=== PATIENT | male | born 1975 | race Two or more races ===

== ENCOUNTER 2023-05-02 13:46 | Emergency (ER) | payer MEDICAID, OTHER ==
[~2023-05-02] VITALS: Ht 185.4 cm; Wt 92.2 kg
[2023-05-02 14:47] VITALS: BP 150/71; PULSE 84; RESP 16; TEMP 98.4; O2SAT 97
[2023-05-02] MEDS ORDERED: IBUP-1456 PO (15:09)
[2023-05-02] MEDS ORDERED: AMOX875T3 PO (15:09)
[2023-05-02] MEDS ORDERED: PROM1SOL4 PO (15:09)
== END 2023-05-02 15:25 | disposition home or self-care (01) ==
LOC: ER 13:46
DX: H66.92 Otitis media, unspecified, left ear (principal); J03.90 Acute tonsillitis, unspecified; J20.9 Acute bronchitis, unspecified

== ENCOUNTER 2024-03-19 19:02 | Emergency (ER) | payer MEDICAID ==
[~2024-03-19] VITALS: Ht 185.4 cm; Wt 88.6 kg
[~2024-03-19 19:02] MED LIST: AMOX875T3 PO; IBUP-1456 PO; METH4PAK PO; PROM1SOL4 PO
--- NOTE | 2024-03-19 19:48 | DVH ---
EXAM: XR Chest, 1 View CLINICAL INDICATION: Cough TECHNIQUE: Frontal view of the chest. COMPARISON: None FINDINGS: LUNGS AND PLEURAL SPACES: Unremarkable. No consolidation. No pneumothorax. HEART: Unremarkable. No cardiomegaly. MEDIASTINUM: Unremarkable. Normal mediastinal contour. BONES/JOINTS: Unremarkable. No acute fracture. OTHER FINDINGS: . None. . IMPRESSION: No acute cardiopulmonary process.
[2024-03-19] MEDS ORDERED: AZIT500T PO (19:50)
--- NOTE | 2024-03-19 19:53 | ED.PDOC ---
History of Present Illness HPI Comments 48 y.o male with medical history of HTN, presents to the ED for a chief complaint of a productive cough and congestion that presented 2 weeks ago. Patient reports cough is dry and is now associated with a week history of substernal chest discomfort due to the productivity of the cough. He denies any SOB, nausea, vomiting, fever or chills. Time Seen by MD: 19:46 Primary Care Provider: NONE Reviewed Notes: Nurses Notes, Medications, Allergies Allergies: Coded Allergies: NO KNOWN ALLERGIES (Unverified , 05/02/23) Home Meds Active Scripts Azithromycin (Zithromax) 500 Mg Tab, 1 TAB PO DAILY, #5 TAB Prov:BEVERLY ARAMBULA MD 03/19/24 Methylprednisolone (Medrol Dosepak) 4 Mg Regan, 4 MG PO UD for 6 Days, #21 TAB UAD Prov:BRENNON PLAZA 11/06/23 Promethazine-Dm (Promethazine Dm 6.25-15 mg/5Ml) 1 Macie Macie, 5 ML PO TID, #150 ML Prov:SKYLA BRAY 05/02/23 Ibuprofen (Ibuprofen) 800 Mg Tab, 1 TAB PO TID, #24 TAB Prov:SKYLA BRAY 05/02/23 Amoxicillin Trihydrate (Amoxicillin) 875 Mg Tab, 1 TAB PO BID, #20 TAB Prov:SKYLA BRAY 05/02/23 Information Source: Patient Severity: Moderate Timing: Weeks (2) Duration: Since onset Past Medical History PAST MEDICAL HISTORY: HTN Surgical History (Other): Back Family History Family History: Unknown Social History Smoker: Non-Smoker Alcohol: Denies ETOH Use Drugs: Denies Drug Use Lives In: Home Constitutional: denies: chills, diaphoresis, fatigue, fever, malaise, sweats, weakness, others EENTM: denies: blurred vision, double vision, ear bleeding, ear discharge, ear drainage, ear pain, ear ringing, eye pain, eye redness, hearing loss, mouth pain, mouth swelling, nasal discharge, nose bleeding, nose congestion, nose pain, photophobia, tearing, throat pain, throat swelling, voice changes, others Respiratory: reports: cough; denies: hemoptysis, orthopnea, SOB at rest, shortness of breath, SOB with excertion, stridor, wheezing, others Cardiovascular: reports: chest pain; denies: dizzy spells, diaphoresis, Dyspnea on exertion, edema, irregular heart beat, left arm pain, lightheadedness, palpitations, PND, syncope, others Gastrointestinal: denies: abdomen distended, abdominal pain, blood streaked bowels, constipated, diarrhea, dysphagia, difficulty swallowing, hematemesis, melena, nausea, poor appetite, poor fluid intake, rectal bleeding, rectal pain, vomiting, others Genitourinary: denies: burning, dysuria, flank pain, frequency, hematuria, incontinence, penile discharge, penile sore, pain, testicle pain, testicle swelling, urgency, others Neurological: denies: dizziness, fainting, headache, left sided numbness, left sided weakness, numbness, paresthesia, pre-existing deficit, right sided numbness, right sided weakness, seizure, speech problems, tingling, tremors, weakness, others Musculoskeletal: denies: back pain, gout, joint pain, joint swelling, muscle pain, muscle stiffness, neck pain, others Integumetry: denies: bruises, change in color, change in hair/nails, dryness, laceration, lesions, lumps, rash, wounds, others Allergic/Immunocompromised: denies: Difficulty Healing, Frequent Infections, Hives, Itching, others Hematologic/Lymphatic: denies: anemia, blood clots, easy bleeding, easy bruising, swollen glands, others Endocrine: denies: excessive hunger, excessive sweating, excessive thirst, excessive urination, flushing, intolerance to cold, intolerance to heat, unexpla ined weight gain, unexplained weight loss, others Psychiatric: denies: anxiety, bipolar disorder, depression, hopeless, panic disorder, schizophrenia, sleepless, suicidal, others All Other Systems: Reviewed and Negative Physical Exam General Appearance: No Apparent Distress HEENT: Normal ENT Inspection, Pharynx Normal, TMs Normal Neck: Full Range of Motion, Non-Tender, Normal, Normal Inspection Respiratory: Chest Non-Tender, Lungs Clear, No Accessory Muscle Use, No Respiratory Distress, Normal Breath Sounds Cardiovascular: No Edema, No JVD, No Murmur, No Gallop, Normal Peripheral Pulses, Regular Rate/Rhythm Breast Exam: Deferred Gastrointestinal: No Organomegaly, Non Tender, No Pulsatile Mass, Normal Bowel Sounds, Soft Genitalia: Deferred Pelvic: Deferred Rectal: Deferred Extremities: No calf tenderness, Normal capillary refill, Normal inspection, Normal range of motion, Non-tender, No pedal edema Musculoskeletal : Apperance: Normal 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 Was a procedure done?: No EKG EKG : Pulse Rate (adult): 83 Cardiac Rhythm: NSR Differential Dx Considerations may include: Bronchitis, PNA, URI, Angina, GERD, Chest wall pain X-Ray, Labs, Meds, VS Vital Signs Date Time Temp Pulse Resp B/P (MAP) Pulse Ox O2 Delivery O2 Flow Rate FiO2 03/19/24 20:21 83 03/19/24 19:50 99.3 83 19 142/64 (90) 96 03/19/24 19:50 19 96 Room Air* 0 21 EXAM: XR Chest, 1 View IMPRESSION: No acute cardiopulmonary process. The patient was being discharged on Zithromax The patient will return to the emergency department's condition worsens The diagnosis is acute bronchitis The patient will follow up with the primary care doctor Images Reviewed?: Images reviewed and evaluated by me Time of 1ST Reevaluation: 19:51 Reevaluation 1ST: Unchanged Patient Education/Counseling: Diagnosis, Treatment, Prognosis, Need For Follow Up Family Education/Counseling: No Family Present Departure 1 Departure Time of Disposition: 20:26 Impression: Primary Impression: Acute bronchitis Qualified Codes: J20.9 - Acute bronchitis, unspecified Disposition: HOME / SELF CARE / HOMELESS Condition: Fair e-Prescriptions Azithromycin (Zithromax) 500 Mg Tab 1 TAB PO DAILY, #5 TAB Prov: BEVERLY ARAMBULA MD 03/19/24 Discharged With: Self Critical Care Note Critical Care Time?: No Stability Stability form required: No Heart Score Heart Score: Heart Score Response (Comments) Value History N/A 0 EKG Normal 0 Age 45-64 1 Risk Factors 1 or 2 risk factors 1 Troponin N/A 0 Total 2 I personally scribed for BEVERLY ARAMBULA MD ([email or web address]) on 03/19/24 at 19:53. Electronically submitted by Noelle López ([facility]). I personally scribed for BEVERLY ARAMBULA MD ([email or web address]) on 03/19/24 at 19:54. Electronically submitted by Noelle López ([facility]). I personally scribed for BEVERLY ARAMBULA MD ([email or web address]) on 03/19/24 at 20:21. Electronically submitted by Noelle López ([facility]). BEVERLY ARAMBULA MD Mar 19, 2024 19:53
[2024-03-19 21:48] VITALS: BP 143/86; TEMP 99.5
[2024-03-19 21:49] VITALS: PULSE 74; RESP 20; O2SAT 97
--- NOTE | 2024-03-25 07:11 | ECG ---
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
== END 2024-03-19 21:51 | disposition home or self-care (01) ==
LOC: ER 19:02
DX: J20.9 Acute bronchitis, unspecified (principal); I10 Essential (primary) hypertension; Z79.1 Long term (current) use of non-steroidal anti-inflammatories (NSAID)
CPT/HCPCS: 71045

== ENCOUNTER 2025-01-23 11:43 | Emergency (ER) | payer MEDICAID ==
[~2025-01-23] VITALS: Ht 188 cm; Wt 90.8 kg
[~2025-01-23 11:43] MED LIST changes: +AZIT500T PO
--- NOTE | 2025-01-23 13:38 | ED.PDOC ---
History of Present Illness HPI Comments 49 y/o M, with PMHx of HTN presents to the ED for CC of headache. Patient states, he has been experiencing symptoms of a frontal "pressure" like headache onset, yesterday (01/22/25). Patient further reports, symptoms of shortness of breath along with chest discomfort. Patient denies palpitations bilateral leg swelling, fever, chills or palpitations. Chief Complaint: Headache Time Seen by MD: 13:30 Primary Care Provider: NONE Reviewed Notes: Nurses Notes, Medications, Allergies Allergies: Coded Allergies: NO KNOWN ALLERGIES (Unverified , 05/02/23) Home Meds Active Scripts Azithromycin (Zithromax) 500 Mg Tab, 1 TAB PO DAILY, #5 TAB Prov:BEVERLY ARAMBULA MD 03/19/24 Methylprednisolone (Medrol Dosepak) 4 Mg Regan, 4 MG PO UD for 6 Days, #21 TAB UAD Prov:BRENNON PLAZA 11/06/23 Promethazine-Dm (Promethazine Dm 6.25-15 mg/5Ml) 1 Macie Macie, 5 ML PO TID, #150 ML Prov:SKYLA BRAY 05/02/23 Ibuprofen (Ibuprofen) 800 Mg Tab, 1 TAB PO TID, #24 TAB Prov:SKYLA BRAY 05/02/23 Amoxicillin Trihydrate (Amoxicillin) 875 Mg Tab, 1 TAB PO BID, #20 TAB Prov:SKYLA BRAY 05/02/23 Information Source: Patient Mode of Arrival: Ambulatory Severity: Moderate Timing: Days Duration: Since onset Prehospital treatment: None Past Medical History PAST MEDICAL HISTORY: HTN Family History Family History: Unknown Social History Smoker: Non-Smoker Alcohol: Denies ETOH Use Drugs: Denies Drug Use Lives In: Home Constitutional: denies: chills, diaphoresis, fatigue, fever, malaise, sweats, weakness, others EENTM: denies: blurred vision, double vision, ear bleeding, ear discharge, ear drainage, ear pain, ear ringing, eye pain, eye redness, hearing loss, mouth pain , mouth swelling, nasal discharge, nose bleeding, nose congestion, nose pain, photophobia, tearing, throat pain, throat swelling, voice changes, others Respiratory: reports: shortness of breath; denies: cough, hemoptysis, orthopnea, SOB at rest, SOB with excertion, stridor, wheezing, others Cardiovascular: denies: chest pain, dizzy spells, diaphoresis, Dyspnea on exertion, edema, irregular heart beat, left arm pain, lightheadedness, palpitations, PND, syncope, others Gastrointestinal: denies: abdomen distended, abdominal pain, blood streaked bowels, constipated, diarrhea, dysphagia, difficulty swallowing, hematemesis, melena, nausea, poor appetite, poor fluid intake, rectal bleeding, rectal pain, vomiting, others Genitourinary: denies: burning, dysuria, flank pain, frequency, hematuria, incontinence, penile discharge, penile sore, pain, testicle pain, testicle swelling, urgency, others Neurological: reports: headache; denies: dizziness, fainting, left sided numbness, left sided weakness, numbness, paresthesia, pre-existing deficit, right sided numbness, right sided weakness, seizure, speech problems, tingling, tremors, weakness, others Musculoskeletal: denies: back pain, gout, joint pain, joint swelling, muscle pain, muscle stiffness, neck pain, others Integumetry: denies: bruises, change in color, change in hair/nails, dryness, laceration, lesions, lumps, rash, wounds, others Allergic/Immunocompromised: denies: Difficulty Healing, Frequent Infections, Hives, Itching, others Hematologic/Lymphatic: denies: anemia, blood clots, easy bleeding, easy bruising, swollen glands, others Endocrine: denies: excessive hunger, excessive sweating, excessive thirst, excessive urination, flushing, intolerance to cold, intolerance to heat, unexplained weight gain, unexplained weight loss, others Psychiatric: denies: anxiety, bipolar disorder, depression, hopeless, panic disorder, schizophrenia, sleepless, suicidal, others All Other Systems: Reviewed and Negative Physical Exam General Appearance: No Apparent Distress, Normal HEENT: Normal ENT Inspection, Pharynx Normal Neck: Full Range of Motion, Non-Tender, Normal, Normal Inspection Respiratory: Chest Non-Tender, Lungs Clear, No Accessory Muscle Use, No Respiratory Distress, Normal Breath Sounds Cardiovascular: No Edema, No Murmur, No Gallop, Normal Peripheral Pulses, Regular Rate/Rhythm Breast Exam: Deferred Gastrointestinal: No Organomegaly, Non Tender, No Pulsatile Mass, Normal Bowel Sounds, Soft Genitalia: Deferred Pelvic: Deferred Rectal: Deferred Extremities: No calf tenderness, Normal capillary refill, Normal inspection, Normal range of motion, Non-tender, No pedal edema Musculoskeletal : Apperance: Normal 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 Was a procedure done?: No Differential Dx Considerations may include: Hypertensive crisis, hypertensive crisis, migraine headache, pulmonary embolism X-Ray, Labs, Meds, VS Vital Signs Date Time Temp Pulse Resp B/P (MAP) Pulse Ox O2 Delivery O2 Flow Rate FiO2 01/23/25 14:01 Room Air* 0 21 01/23/25 13:18 97.5 57 18 171/88 (115) 98 97.5 01/23/25 11:45 98.4 61 15 156/90 98 98.4 Lab Test 01/23/25 13:28 Range/Units White Blood Count 6.0 4.4-10.8 10^3/uL Red Blood Count 4.85 4.5-5.90 10^6/uL Hemoglobin 13.9 13.5-17.5 g/dL Hematocrit 40.9 L 41.0-53.0 % Mean Corpuscular Volume 84.3 80.0-100.0 fL Mean Corpuscular Hemoglobin 28.6 28.0-32.0 pg Mean Corpuscular Hemoglobin Concent 33.9 32.0-36.0 g/dL Red Cell Distribution Width 13.2 11.8-14.3 % Platelet Count 345 140-450 10^3/uL Mean Platelet Volume 7.9 6.9-10.8 fL Neutrophils (%) (Auto) 68.8 37.0-80.0 % Lymphocytes (%) (Auto) 23.0 10.0-50.0 % Monocytes (%) (Auto) 6.6 0.0-12.0 % Eosinophils (%) (Auto) 0.8 0.0-7.0 % Basophils (%) (Auto) 0.8 0.0-2.0 % Neutrophils # (Auto) 4.1 1.6-8.6 10 ^3/uL Lymphocytes # (Auto) 1.4 0.4-5.4 10 ^3/uL Monocytes # (Auto) 0.4 0-1.3 10 ^3/uL Eosinophils # (Auto) 0 0-0.8 10 ^3/uL Basophils # (Auto) 0 0-0.2 10 ^3/uL Nucleated Red Blood Cells 0.1 % Sodium Level 141 136-145 mmol/L Potassium Level 4.4 3.5-5.1 mmol/L Chloride Level 104 98-107 mmol/L Carbon Dioxide Level 30 20-31 mmol/L Anion Gap 7 5-15 Blood Urea Nitrogen 17 9-23 mg/dL Creatinine 1.00 0.700-1.30 mg/dL Glomerular Filtration Rate Calc 92 >90 mL/min BUN/Creatinine Ratio 17.0 10.0-20.0 Serum Glucose 77 74-106 mg/dL Calcium Level 10.0 8.7-10.4 mg/dL Troponin I High Sensitivity 9 </=54 ng/L Current Medications Medications (Trade) Dose Ordered Sig/Sakina Route Start Time Stop Time Status Last Admin Acetaminophen (Tylenol Tablet) 650 mg ONCE ONCE PO 01/23/25 13:15 01/23/25 13:16 DC 01/23/25 14:05 Sodium Chloride 1,000 ml @ 1,000 mls/hr Q1H ONCE IV 01/23/25 13:15 01/23/25 14:14 DC 01/23/25 14:04 Metoclopramide HCl (Reglan Injection) 10 mg ONCE ONCE IV 01/23/25 13:15 01/23/25 13:16 DC 01/23/25 14:04 [place] [address] Ph: [phone] DIAGNOSTIC IMAGING Diagnostic Imaging Report : [id number] Signed PATIENT: AVELINA DIAZIOACCT: [id number] UNIT: [id number] : 1975 LOC: ER ROOM / BED: / AGE / SEX: 49 / M ADM STATUS: REG ER SERVICE 1304 ORDERING PHYSICIAN: ONESIMO ELAM MD PROCEDURE(s): CXRP - CHEST PORTABLE REASON: htn ORDER NUMBER(s): [id number], ACCESSION NUMBER(s): [id number] CLINICAL INFORMATION: Hypertension. TECHNIQUE: Single AP portable chest radiograph was obtained. COMPARISON: XY CHEST PORTABLE on DOS: 03/19/24 FINDINGS: Lungs: Clear. Cardiac: Heart size is within normal limits. Pulmonary vasculature: Unremarkable. Mediastinum/edith: Unremarkable. Bones: No acute osseous abnormality identified. Other: No other significant findings. IMPRESSION: No evidence of acute disease in the chest. ATED BY: SRINIVAS BELTRNÁ DO DICTATED DATE/TIME: 01/23/251337 SIGNED BY: SRINIVAS BELTRÁN DO SIGNED DATE/TIME: 01/23/251337 CC: Time of 1ST Reevaluation: 14:00 Reevaluation 1ST: Unchanged Patient Education/Counseling: Diagnosis, Treatment Family Education/Counseling: No Family Present SEPSIS Sepsis Screen Date sepsis recognized/suspect: Jan 23, 2025 Time Sepsis recognized/suspect: 1148 Recent Procedure: No On Antibiotic Therapy: No Respiratory Rate >20: No Heart Rate >90: No Temp<36 C (96.8 F) or >38.3 C: No SBP <90 or MAP <65 mmHG: No New Acute Mental Status Change: No Is the patient on CPAP, BIPAP,: No Physician Orders Chest Portable (01/23/25 13:04) Urinalysis (01/23/25 13:04) Electrocardigram (01/23/25 13:04) Troponin-I Hs (01/23/25 14:04) Troponin-I Hs (01/23/25 16:04) Electrocardigram (01/23/25 14:04) Electrocardigram (01/23/25 16:04) Ketorolac Injection (Toradol Injection) (01/23/25 15:00) Vital Signs Date Time Temp Pulse Resp B/P (MAP) Pulse Ox O2 Delivery O2 Flow Rate FiO2 01/23/25 14:01 Room Air* 0 21 01/23/25 13:18 97.5 57 18 171/88 (115) 98 97.5 01/23/25 11:45 98.4 61 15 156/90 98 98.4 Laboratory Tests Test 01/23/25 13:28 White Blood Count 6.0 10^3/uL (4.4-10.8) Medications Medications Dose Ordered Sig/Sakina Route Start Time Stop Time Status Last Admin Dose Admin Acetaminophen 650 mg ONCE ONCE PO 01/23/25 13:15 01/23/25 13:16 DC 01/23/25 14:05 Metoclopramide HCl 10 mg ONCE ONCE IV 01/23/25 13:15 01/23/25 13:16 DC 01/23/25 14:04 Sodium Chloride 1,000 ml @ 1,000 mls/hr Q1H ONCE IV 01/23/25 13:15 01/23/25 14:14 DC 01/23/25 14:04 Departure 1 Departure Time of Disposition: 14:57 (Patient likely with a migraine. Patient is feeling significantly better. We will discharge patient home with outpatient follow up) Impression: Primary Impression: Migraine Disposition: HOME / SELF CARE / HOMELESS Condition: Stable Additional Instructions: You likely had a migraine. Your labs, EKG, chest x-ray were all benign. You received medications in the ER. You can take tylenol and motrin as needed for pain. You should stay well rested and well hydrated. It is important to follow up with your regular doctor within one week. If your symptoms worsen or you have any other concerns then please return to the ER. Discharged With: Self Critical Care Note Critical Care Time?: No Stability Stability form required: No Heart Score Heart Score: Heart Score Response (Comments) Value History N/A 0 EKG N/A 0 Age N/A 0 Risk Factors N/A 0 Troponin N/A 0 Total 0 I personally scribed for ONESIMO ELAM MD ([email or web address]) on 01/23/25 at 13:38. Electronically submitted by Cydney Galvan ([email or web address]). I personally scribed for ONESIMO ELAM MD ([email or web address]) on 01/23/25 at 13:42. Electronically submitted by Cydney Galvan ([email or web address]). ONESIMO ELAM MD Jan 23, 2025 13:38
[2025-01-23 13:59] LABS: Hematocrit 40.9 % (41.0-53.0); Hemoglobin 13.9 g/dL (13.5-17.5); Mean Corpuscular Hemoglobin 28.6 pg (28.0-32.0); Mean Corpuscular Volume 84.3 fL (80.0-100.0); Nucleated Red Blood Cells % 0.1 %
[2025-01-23] MEDS: METOCLOPRAMIDE HCL 5MG/ml INJ 2ml VIAL IV ONE (14:04)
[2025-01-23] MEDS: SODIUM CHLORIDE 0.9% 1,000 ML IV ONE (14:04)
[2025-01-23] MEDS: ACETAMINOPHEN 325 MG TAB PO ONE (14:05)
[2025-01-23 14:12] LABS: Chloride 104 mmol/L (98-107); Potassium 4.4 mmol/L (3.5-5.1); Sodium 141 mmol/L (136-145)
[2025-01-23 14:13] LABS: Anion Gap 7 (5-15); Calcium 10.0 mg/dL (8.7-10.4); Carbon Dioxide 30 mmol/L (20-31)
[2025-01-23 14:18] LABS: BUN/Creatinine Ratio 17.0 (10.0-20.0); Blood Urea Nitrogen 17 mg/dL (9-23); Glucose 77 mg/dL (74-106)
[2025-01-23 15:15] VITALS: BP 157/70; PULSE 68; RESP 18; TEMP 98.6; O2SAT 98
[2025-01-23] MEDS: KETOROLAC TROMETH 30 MG/ML 1ML VIAL IV ONE (15:21)
[2025-01-23 16:42] LABS: Urine Protein, UAD Negative (Negative)
== END 2025-01-23 15:15 | disposition home or self-care (01) ==
LOC: ER 11:43
DX: G43.909 Migraine, unspecified, not intractable, without status migrainosus (principal); I10 Essential (primary) hypertension; Z79.899 Other long term (current) drug therapy
CPT/HCPCS: 36415; 71045; 80048; 81001; 84484; 85025; 96361; 96374; 99284; J2765; J7030